=== PATIENT | female | born 2000 | race Caucasian/White ===

== ENCOUNTER 2024-09-17 15:44 | Emergency (ER) | payer BC, SELFPAY ==
--- NOTE | ~2024-09-17 | CT_ITS ---
CT abdomen pelvis w con Ordering provider: Maryellen Sheppard PA-C History: 24 years Female with . RUQ abd pain, vomiting . Comparison: None. Technique: CT abdomen and pelvis with IV and without oral contrast. Automated exposure control and it erative reconstruction technique were employed. The dose-length product was 537.90 mGy-cm. 100 mL Omn ipaque 350 was given IV. Findings: VISUALIZED LOWER CHEST: Normal. UPPER ABDOMINAL ORGANS: Liver: Normal. Gallbladder: Normal. Spleen: Normal. Stomach/duodenum: Normal. Pancreas: Normal. Adrenals: Normal. Kidneys: Normal. PELVIC ORGANS: The bladder is normal. Ruptured follicle is seen in the left ovary. BOWEL AND MESENTERY: Colon: No evidence of diverticulitis. Fecal material is seen in the colon. Normal appendix. Small Bowel: Normal. No obstruction. Peritoneum/mesentery: No free air. Minimal free fluid in the pelvis.. No mesenteric lymphadenopathy. Mesenteric lymph nodes are noted with the largest measures 1.5 cm. RETROPERITONEUM: Normal aorta. No retroperitoneal lymphadenopathy. MUSCULOSKELETAL: Superficial soft tissues: The superficial soft tissues are normal. Bones: Normal spine. Spondylolysis at the level of L5-S1. IMPRESSION: 1. No evidence of appendicitis, diverticulitis or intestinal obstruction. 2. Minimal free fluid in the pelvis. A ruptured follicle in the left ovary. Clinical correlation adv ised. Reviewed, dictated and finalized at location A. IMPRESSION: 1. No evidence of appendicitis, diverticulitis or intestinal obstruction. 2. Minimal free fluid in the pelvis. A ruptured follicle in the left ovary. Cl inical correlation advised.
[2024-09-17 15:46] VITALS: BP 127/83; PULSE 94; RESP 18; TEMP 36.4; O2SAT 100
--- NOTE | 2024-09-17 16:02 | ED_ITS ---
HPI - Abdominal Pain General Chief Complaint: Abdominal Pain <Lizette Glover APRN - Last Filed: 09/17/24 16:08> Stated Complaint: abd pain <Lizette Glover APRN - Last Filed: 09/17/24 16:08> Time Seen by Provider: 09/17/24 15:50 <Lizette Glover ANDROID IOS DEVELOPER - Last Filed: 09/17/24 16:08> Focused HPI: Patient is a 24-year-old female who presents to the ER with complaints of abdominal pain. She reports the pain started in her right upper quadrant, but has also traveled down to her right lower quadrant. Patient reports she has been experiencing cramps intermittently. She reports she had not had a bowel movement for a while prior to last Tuesday, then did not have another bowel movement until Tuesday (2 days ago). Patient reports her bowel movements have been black, but she also endorses recent Pepto-Bismol use. She reports this morning she was in from much pain she was curled on the floor and was vomiting. Patient endorses tightness in her chest that radiates to her shoulders. She reports her last period was approximately 2 weeks ago, but she and her boyfriend recently had sex for the 1st time unprotected. GENERAL: Well-appearing, well-nourished, and in no acute distress. HEAD: Normocephalic, atraumatic. CHEST: Clear to auscultation. ?No respiratory distress. HEART: Regular rate and rhythm.? NEURO: ?Alert and oriented x3. Patient screened in triage and initial orders placed.? ?Additional care and disposition to be based upon?diagnostic testing and treatment. <Lizette Glover ANDROID IOS DEVELOPER - Last Filed: 09/17/24 16:08> Focused HPI: Patient is a 24-year-old female who presents to the ER with complaints of abdominal pain. She reports the pain started in her right upper quadrant, but has also traveled down to her right lower quadrant. Patient reports she has been experiencing cramps intermittently. She reports she had not had a bowel movement for a while prior to last Tuesday, then did not have another bowel movement until Tuesday (2 days ago). Patient reports her bowel movements have been black, but she also endorses recent Pepto-Bismol use. She reports this morning she was in from much pain she was curled on the floor and was vomiting. She reports her last period was approximately 2 weeks ago, but she and her boyfriend recently had sex for the 1st time unprotected. GENERAL: Well-appearing, well-nourished, and in no acute distress. HEAD: Normocephalic, atraumatic. CHEST: Clear to auscultation. ?No respiratory distress. HEART: Regular rate and rhythm.? NEURO: ?Alert and oriented x3. Patient screened in triage and initial orders placed.? ?Additional care and disposition to be based upon?diagnostic testing and treatment. <Maryellen Sheppard PA-C - Last Filed: 09/17/24 22:56> Related Data Allergies/Adverse Reactions: Allergies Allergy/AdvReac Type Severity Reaction Status Date / Time No Known Allergies Allergy Verified 09/17/24 15:45 <Lizette Glover APRN - Last Filed: 09/17/24 16:08> Review of Systems Review of Systems: CONSTITUTIONAL: Denies fever GASTROINTESTINAL: Reports abdominal pain, nausea, vomiting GENITOURINARY: Denies dysuria <Maryellen Sheppard PA-C - Last Filed: 09/17/24 22:56> All systems reviewed & are unremarkable except as noted in HPI and below <Maryellen Sheppard PA-C - Last Filed: 09/17/24 22:56> PMFSH Surgical History Surgical History: Surgical History (Updated 09/17/24 @ 20:40 by Maryellen Sheppard PA-C) No pertinent past surgical history <Lizette Glover APRN - Last Filed: 09/17/24 16:08> Social History Social History: Social History (Updated 09/17/24 @ 20:40 by Maryellen Sheppard PA-C) Substance use: never <Lizette Glover APRN - Last Filed: 09/17/24 16:08> Exam Narrative: GENERAL: Well-appearing, well-nourished, and in no acute distress. HEAD: Normocephalic, atraumatic. EYES: EOMI. CHEST: Clear to auscultation. No respiratory distress. No wheezes rales or rhonchi HEART: Regular rate and rhythm. No murmur heard. Normal peripheral pulses. ABDOMEN: Soft, nondistended, normal active bowel sounds. Tender to palpation in the right upper quadrant, without guarding EXTREMITIES: Normal range of motion. No edema. SKIN: Warm, dry, no rash. NEURO: No focal deficits. Alert and oriented x3. PSYCH: Normal mood and affect <Maryellen Sheppard PA-C - Last Filed: 09/17/24 22:56> Course Course Emergency Course: Patient updated on her workup. Resting comfortbly <Maryellen Sheppard PA-C - Last Filed: 09/17/24 22:56> Vital Signs Vital signs: Vital Signs Temperature 97.5 F L 09/17/24 15:46 Pulse Rate 94 09/17/24 15:46 Respiratory Rate 18 09/17/24 15:46 Blood Pressure 127/83 09/17/24 15:46 Pulse Oximetry 100 09/17/24 15:46 Oxygen Delivery Room Air 09/17/24 15:46 Temperature 97.5 F L 09/17/24 15:46 Pulse Rate 79 09/17/24 19:30 Respiratory Rate 20 09/17/24 19:30 Blood Pressure 120/72 09/17/24 19:30 Pulse Oximetry 99 09/17/24 19:30 Oxygen Delivery Room Air 09/17/24 15:46 <Lizette Glover, CESAR - Last Filed: 09/17/24 16:08> Vital Signs Temperature 97.5 F L 09/17/24 15:46 Pulse Rate 94 09/17/24 15:46 Respiratory Rate 18 09/17/24 15:46 Blood Pressure 127/83 09/17/24 15:46 Pulse Oximetry 100 09/17/24 15:46 Oxygen Delivery Room Air 09/17/24 15:46 Temperature 97.5 F L 09/17/24 15:46 Pulse Rate 79 09/17/24 19:30 Respiratory Rate 20 09/17/24 19:30 Blood Pressure 120/72 09/17/24 19:30 Pulse Oximetry 99 09/17/24 19:30 Oxygen Delivery Room Air 09/17/24 15:46 <EMMANUEL Bazan Last Filed: 09/17/24 22:56> MDM - Abdominal Pain MDM Narrative Medical decision making narrative: Patient presents to the emergency department for right upper quadrant abdominal pain. Ongoing intermittently over the last week. She is afebrile and nontoxic appearing. Her vitals are stable. Cbc without leukocytosis. Metabolic panel with mild hypokalemia. Potassium was replaced. Urine without evidence of infection. test is negative. CT abdomen and pelvis shows minimal free fluid in the pelvis, rupture left ovarian follicle. Otherwise no acute findings. Patient was updated on her workup. Resting comfortably. Instructed to have further follow-up with prior provider. She was given warnings to return to the ER <Maryellen Sheppard PA-C - Last Filed: 09/17/24 22:56> Differential Diagnosis Differential diagnosis: Likely diverticulitis, pancreatitis and other (Biliary colic) <Maryellen Sheppard PA-C - Last Filed: 09/17/24 22:56> Lab Data Attestation: I reviewed the patient's lab results. <Maryellen Sheppard PA-C - Last Filed: 09/17/24 22:56> Result diagrams: 09/17/24 16:41 09/17/24 16:41 <Lizette Glover APRN - Last Filed: 09/17/24 16:08> Labs: Lab Results 09/17/24 09/17/24 09/17/24 Range/Units 16:41 17:50 17:53 WBC 9.4 (4.5-10.0) K/mm3 RBC 4.05 L (4.2-5.4) M/mm3 Hgb 12.3 (12.0-15.0) g/dL Hct 37.2 (37.0-47.0) % MCV 91.9 (80-100) fl MCH 30.4 (26-34) pg MCHC 33.1 (32-36) g/dl RDW 13.4 (11.5-14.5) % Plt Count 291 (150-375) k/mm3 MPV 9.4 (7.4-10.4) fl Immature Gran % (Auto) 0.3 (0-0.5) % Neut % (Auto) 62.5 (45.5-73.1) % Lymph % (Auto) 26.1 (18.3-44.2) % [place] % (Auto) 8.2 (2.6-8.5) % Eos % (Auto) 2.7 (0-4.4) % Baso % (Auto) 0.2 (0.2-1.2) % Lymph # (Auto) 2.44 (0.9-3.2) K/mm3 [place] # (Auto) 0.8 H (0.1-0.6) K/mm3 Eos # (Auto) 0.3 (0-0.3) K/mm3 Baso # (Auto) 0.0 (0.0-0.1) K/mm3 Abs Immat Gran (auto) 0.03 (0.00-0.031) K/mm3 Absolute Neuts (auto) 5.8 (1.3-6.7) K/mm3 Absolute Nucleated RBC 0.000 (0.0-0.012) K/mm3 Nucleated RBC % 0.0 (0.0-0.2) % PT 13.0 (11.1-14.7) Seconds INR 1.0 APTT 28.3 (22.3-36.8) Seconds Sodium 140 (137-145) mmol/L Potassium 3.3 L (3.4-5.0) mmol/L Chloride 105 (98-107) mmol/L Carbon Dioxide 26 (22-30) mmol/L Anion Gap 9 (4-12) mmol/L BUN 8 (7-17) mg/dL Creatinine 0.80 (0.7-1.0) mg/dL Estim Creat Clear Calc 96 ml/min Estimated GFR > 60 (59 - ) Glucose 100 (65-110) mg/dL Calcium 8.9 (8.4-10.2) mg/dL Magnesium 1.9 (1.6-2.3) mg/dL Total Bilirubin 0.4 (0.2-1.3) mg/dL AST 19 (14-36) U/L ALT 15 (6-35) U/L Alkaline Phosphatase 57 (38-126) U/L Total Protein 7.0 (6.3-8.2) g/dL Albumin 4.4 (3.5-5.1) g/dL Lipase 84 (23-300) U/L Beta HCG, Quant < 2.39 mIU/ML Urine Color Yellow (Yellow) Urine Appearance Clear (Clear) Urine pH 5.0 (5.0-9.0) Ur Specific [place] 1.027 (1.001-1.035) Urine Protein Negative (Negative) mg/dL Urine Glucose (UA) Negative (Negative) mg/dL Urine Ketones Trace H (Negative) mg/dL Ur Blood (Man) Negative (Negative) Urine Nitrate Negative (Negative) Urine Bilirubin Negative (Negative) Urine Urobilinogen 0.2 (<2.0) mg/dL Leukocyte Esterase Rfl Negative (Negative) BLAINE/UL POC Urine HCG, Qual Negative (Negative) <Lizette Glover, ANDROID IOS DEVELOPER - Last Filed: 09/17/24 16:08> Lab Results 09/17/24 09/17/24 09/17/24 Range/Units 16:41 17:50 17:53 WBC 9.4 (4.5-10.0) K/mm3 RBC 4.05 L (4.2-5.4) M/mm3 Hgb 12.3 (12.0-15.0) g/dL Hct 37.2 (37.0-47.0) % MCV 91.9 (80-100) fl MCH 30.4 (26-34) pg MCHC 33.1 (32-36) g/dl RDW 13.4 (11.5-14.5) % Plt Count 291 (150-375) k/mm3 MPV 9.4 (7.4-10.4) fl Immature Gran % (Auto) 0.3 (0-0.5) % Neut % (Auto) 62.5 (45.5-73.1) % Lymph % (Auto) 26.1 (18.3-44.2) % [place] % (Auto) 8.2 (2.6-8.5) % Eos % (Auto) 2.7 (0-4.4) % Baso % (Auto) 0.2 (0.2-1.2) % Lymph # (Auto) 2.44 (0.9-3.2) K/mm3 [place] # (Auto) 0.8 H (0.1-0.6) K/mm3 Eos # (Auto) 0.3 (0-0.3) K/mm3 Baso # (Auto) 0.0 (0.0-0.1) K/mm3 Abs Immat Gran (auto) 0.03 (0.00-0.031) K/mm3 Absolute Neuts (auto) 5.8 (1.3-6.7) K/mm3 Absolute Nucleated RBC 0.000 (0.0-0.012) K/mm3 Nucleated RBC % 0.0 (0.0-0.2) % PT 13.0 (11.1-14.7) Seconds INR 1.0 APTT 28.3 (22.3-36.8) Seconds Sodium 140 (137-145) mmol/L Potassium 3.3 L (3.4-5.0) mmol/L Chloride 105 (98-107) mmol/L Carbon Dioxide 26 (22-30) mmol/L Anion Gap 9 (4-12) mmol/L BUN 8 (7-17) mg/dL Creatinine 0.80 (0.7-1.0) mg/dL Estim Creat Clear Calc 96 ml/min Estimated GFR > 60 (59 - ) Glucose 100 (65-110) mg/dL Calcium 8.9 (8.4-10.2) mg/dL Magnesium 1.9 (1.6-2.3) mg/dL Total Bilirubin 0.4 (0.2-1.3) mg/dL AST 19 (14-36) U/L ALT 15 (6-35) U/L Alkaline Phosphatase 57 (38-126) U/L Total Protein 7.0 (6.3-8.2) g/dL Albumin 4.4 (3.5-5.1) g/dL Lipase 84 (23-300) U/L Beta HCG, Quant < 2.39 mIU/ML Urine Color Yellow (Yellow) Urine Appearance Clear (Clear) Urine pH 5.0 (5.0-9.0) Ur Specific [place] 1.027 (1.001-1.035) Urine Protein Negative (Negative) mg/dL Urine Glucose (UA) Negative (Negative) mg/dL Urine Ketones Trace H (Negative) mg/dL Ur Blood (Man) Negative (Negative) Urine Nitrate Negative (Negative) Urine Bilirubin Negative (Negative) Urine Urobilinogen 0.2 (<2.0) mg/dL Leukocyte Esterase Rfl Negative (Negative) BLAINE/UL POC Urine HCG, Qual Negative (Negative) <Maryellen Sheppard PA-C - Last Filed: 09/17/24 22:56> Imaging Data Radiologist's impression: ITS Impressions Abdomen/Pelvis CT 09/17/24 22:15 IMPRESSION: 1. No evidence of appendicitis, diverticulitis or intestinal obstruction. 2. Minimal free fluid in the pelvis. A ruptured follicle in the left ovary. Clinical correlation advised. <Lizette Glover APRN - Last Filed: 09/17/24 16:08> ITS Impressions Abdomen/Pelvis CT 09/17/24 22:15 IMPRESSION: 1. No evidence of appendicitis, diverticulitis or intestinal obstruction. 2. Minimal free fluid in the pelvis. A ruptured follicle in the left ovary. Clinical correlation advised. <Maryellen Sheppard PA-C - Last Filed: 09/17/24 22:56> Critical Care Time Critical Care Time Critical Care Time: No <Maryellen Sheppard PA-C - Last Filed: 09/17/24 22:56> Discharge Plan Discharge Clinical Impression: Right upper quadrant abdominal pain, Hypokalemia <Lizette Glover APRN - Last Filed: 09/17/24 16:08> Patient Disposition: Home, Self-Care <Lizette Glover APRN - Last Filed: 09/17/24 16:08> Condition: Stable <Lizette Glover APRN - Last Filed: 09/17/24 16:08> Instructions: Abdominal Pain (ED), Hypokalemia (ED) <Lizette Glover APRN - Last Filed: 09/17/24 16:08> Additional Instructions: Return to the ER if you experience fever, abdominal pain with nausea and vomiting, you are unable to keep down liquids or solids, or any other symptoms that are concerning to you Small, frequent meals. [place] diet. Remain well hydrated. Take Pepcid daily Follow up with your primary care doctor <Lizette Glover APRN - Last Filed: 09/17/24 16:08> Follow-up/Referrals: Tor Mcdaniel MD [Physician] - UNKNOWN,DOCTOR [Primary Care Provider] - <Lizette Glover APRN - Last Filed: 09/17/24 16:08>
[2024-09-17 16:47] LABS: Basophils Percent Auto 0.2 % (0.2-1.2); Eosinophils Absolute Auto 0.3 K/mm3 (0-0.3); Eosinophils Percent Auto 2.7 % (0-4.4); Hematocrit 37.2 % (37.0-47.0); Hemoglobin 12.3 g/dL (12.0-15.0); Immature Granulocyte Absolute 0.03 K/mm3 (0.00-0.031); Immature Granulocyte Percent A 0.3 % (0-0.5); Lymphocytes Absolute Auto 2.44 K/mm3 (0.9-3.2); Lymphocytes Percent Auto 26.1 % (18.3-44.2); Mean Corpuscular HGB Conc 33.1 g/dl (32-36); Mean Corpuscular Hemoglobin 30.4 pg (26-34); Mean Corpuscular Volume 91.9 fl (80-100); Mean Platelet Volume 9.4 fl (7.4-10.4); Monocytes Absolute Auto 0.8 K/mm3 (0.1-0.6); Monocytes Percent Auto 8.2 % (2.6-8.5); Neutrophils Absolute Auto 5.8 K/mm3 (1.3-6.7); Neutrophils Percent Auto 62.5 % (45.5-73.1); Platelet Count Result 291 k/mm3 (150-375); Red Blood Count 4.05 M/mm3 (4.2-5.4); Red Cell Distribution Width 13.4 % (11.5-14.5); White Blood Count 9.4 K/mm3 (4.5-10.0)
[2024-09-17 16:57] LABS: Alanine Aminotransferase 15 U/L (6-35); Albumin Level 4.4 g/dL (3.5-5.1); Alkaline Phosphatase 57 U/L (38-126); Anion Gap 9 mmol/L (4-12); Aspartate Amino Transferase 19 U/L (14-36); Bilirubin,Total 0.4 mg/dL (0.2-1.3); Blood Urea Nitrogen 8 mg/dL (7-17); Calcium 8.9 mg/dL (8.4-10.2); Carbon Dioxide 26 mmol/L (22-30); Chloride 105 mmol/L (98-107); Estimated CRCL calculation 96 ml/min; Estimated Glomerular Filt Rate > 60; Glucose 100 mg/dL (65-110); Lipase 84 U/L (23-300); Potassium 3.3 mmol/L (3.4-5.0); Sodium 140 mmol/L (137-145)
[2024-09-17 17:07] LABS: Partial Thromboplastin Time 28.3 Seconds (22.3-36.8)
[2024-09-17 17:13] LABS: Beta HCG Quantitative < 2.39 mIU/ML
[2024-09-17] MEDS: FAMOTIDINE 20 MG/2 ML VIAL IV PUSH (17:47)
[2024-09-17] MEDS: PANTOPRAZOLE SODIUM IV 40 MG VIAL IV PUSH (17:47)
[2024-09-17 17:55] LABS: BEDSIDEPREGUCG Negative (Negative)
[2024-09-17 17:59] LABS: Add Urine Microscopic? NO; Appearance Urine Clear (Clear); Bilirubin Urine Negative (Negative); Blood Urine Negative (Negative); Color Urine Yellow (Yellow); Glucose Urine UA Negative (Negative); Ketones Urine Trace mg/dL (Negative); Leukocyte Esterase Ur Negative LEU/UL (Negative); Nitrate Urine Negative (Negative); Protein Urine Negative (Negative); Specific Grav Ur 1.027 (1.001-1.035); Urobilinogen Urine 0.2 mg/dL (<2.0)
[2024-09-17 19:30] VITALS: BP 120/72; PULSE 79; RESP 20; O2SAT 99
[2024-09-17 21:05] LABS: Magnesium 1.9 mg/dL (1.6-2.3)
[2024-09-17 21:38] VITALS: BP 136/72; PULSE 76; RESP 15; TEMP 36.7; O2SAT 98
[2024-09-17 23:03] VITALS: BP 122/68; PULSE 68; RESP 16; O2SAT 99
[2024-09-17] MEDS: POTASSIUM CHLORIDE 20 MEQ ER TABLET 40 MEQ PO (23:14)
== END 2024-09-17 23:22 | disposition home or self-care (01) ==
PROVIDERS: Registered Nurse; Emergency Provider Physician Assistant
DX: R10.11 Right upper quadrant pain (principal); E87.6 Hypokalemia
CPT/HCPCS: 36415; 74177; 80053; 81003; 81025; 83690; 83735; 84702; 85025; 85610; 85730; 96374; 96375; 99284; A9270; J2470; Q9967